=== PATIENT | male | born 1930 | race African-American/Black ===

== ENCOUNTER 2017-12-16 04:49 | Inpatient (IN) | payer MEDICARE, BC ==
[~2017-12-16] VITALS: Ht 185.4 cm; Wt 89.8 kg
[~2017-12-16 04:49] MED LIST: AML5T PO; [UNRECOGNIZED DRUG - CODE] PO
[2017-12-16 08:08] LABS: Basophils # (auto) 0 uL; Basophils % (auto) 0.4 % (0.0-2.0); Eosinophils # (auto) 0 uL; Hematocrit 40.8 % (41.0-53.0); Hemoglobin 13.5 g/dL (13.5-17.5); Lymphocytes # (auto) 0.9 uL; Lymphocytes % (auto) 8.6 % (10.0-50.0); Mean Corpuscular Hemoglobin 30.3 pg (28.0-32.0); Mean Corpuscular Hgb Conc. 33.1 g/dL (32.0-36.0); Mean Corpuscular Volume 91.7 fL (80.0-100.0); Monocytes # (auto) 1.4 uL; Monocytes % (auto) 13.1 % (0.0-12.0); Neutrophils # (auto) 8.1 uL; Neutrophils % (auto) 77.9 % (37.0-80.0); Platelet Count (auto) 218 10^3/uL (140-450); Red Blood Cells 4.45 10^6/uL (4.5-5.90); Red Cell Distribution Width 13.2 % (11.8-14.3); White Blood Cell 10.4 10^3/uL (4.4-10.8)
[2017-12-16 08:19] LABS: INR 1.01 (0.9-1.15); Partial Thromboplastin Time 23.1 sec (22.64-33.71)
[2017-12-16 08:36] LABS: Alanine Aminotransferase 29 U/L (16-61); Albumin 3.4 g/dL (3.4-5.0); Alkaline Phosphatase 77 U/L (45-117); Anion Gap 9 (5-15); Aspartate Aminotransferase 22 U/L (15-37); BUN/Creatinine Ratio 13.3; Blood Alcohol < 3.0 mg/dL (0-5); Blood Urea Nitrogen 16 mg/dL (7-18); Calcium 8.5 mg/dL (8.5-10.1); Carbon Dioxide 25 mmol/L (21-32); Chloride 105 mmol/L (98-107); GFR African American 73 mL/min; GFR Non-African American 61 mL/min; Glucose 141 mg/dL (74-106); Potassium 3.5 mmol/L (3.5-5.1); Sodium 139 mmol/L (136-145); Total Protein 7.2 g/dL (6.4-8.2)
[2017-12-16 09:19] LABS: Urine Bacteria NONE SEEN /hpf (None Seen); Urine Blood Negative /uL (Negative); Urine Mucus FEW (None Seen); Urine Specific Gravity 1.022 (1.001-1.035); Urine WBC <1 /hpf (0 - 3)
[2017-12-16] MEDS ORDERED: ACETAMINOPHEN 500 MG TAB PO PRN (11:45)
[2017-12-16] MEDS ORDERED: traMADol HCL 50 MG TAB PO PRN (11:45)
[2017-12-16] MEDS ORDERED: amLODIPine BESYLATE 5 MG TAB PO ONE (11:45)
[2017-12-16] MEDS ORDERED: ONDANSETRON HCL 4 MG/2 ML VIAL IV PRN (11:45)
[2017-12-16] MEDS ORDERED: LEVOFLOXACIN 500 MG TAB PO ONE (11:45)
[2017-12-16] MEDS ORDERED: MORPHINE SULFATE 4 MG/ML SYR/VIAL IV PRN (11:45)
[2017-12-16] MEDS ORDERED: SODIUM CHLORIDE 0.9% 1,000 ML IV SCH (11:45)
[2017-12-16 12:26] LABS: Cholesterol 152 mg/dL (< 200); HDL Cholesterol 72 mg/dL (40-59); LDL Cholesterol 87 mg/dL (< 100); Triglycerides 70 mg/dL (< 150)
[2017-12-16] MEDS ORDERED: cefTRIAXone 1GM/10ml IVPUSH 10 ML IV ONE (14:00)
[2017-12-16] MEDS ORDERED: AZITHROMYCIN 500MG/ 250ML 250 ML IV ONE (14:00)
[2017-12-16] MEDS: SODIUM CHLORIDE 0.9% 1,000 ML IV SCH (14:17)
[2017-12-16 18:21] VITALS: BP 151/67
[2017-12-16 20:00] VITALS: BP 145/75
[2017-12-16] MEDS: MEMANTINE HCL 5 MG TAB PO SCH (21:45)
[2017-12-16] MEDS: DOCUSATE SOD 100 MG CAP PO SCH (21:45)
[2017-12-16 22:00] VITALS: BP 145/75
[2017-12-16] MEDS ORDERED: HALOPERIDOL LACTATE 5 MG/ML INJ VIAL IM PRN (23:15)
[2017-12-17] MEDS: SODIUM CHLORIDE 0.9% 1,000 ML IV SCH ×3 (03:20→20:05)
[2017-12-17 04:34] VITALS: BP 118/80
[2017-12-17 06:37] LABS: BUN/Creatinine Ratio 12.2; Calcium 8.1 mg/dL (8.5-10.1); Potassium 3.7 mmol/L (3.5-5.1)
[2017-12-17 08:27] LABS: Basophils # (auto) 0 uL; Basophils % (auto) 0.3 % (0.0-2.0); Eosinophils # (auto) 0 uL; Eosinophils % (auto) 0.6 % (0.0-7.0); Hematocrit 37.7 % (41.0-53.0); Hemoglobin 12.7 g/dL (13.5-17.5); Lymphocytes % (auto) 13.8 % (10.0-50.0); Mean Corpuscular Hemoglobin 30.9 pg (28.0-32.0); Mean Corpuscular Hgb Conc. 33.7 g/dL (32.0-36.0); Mean Corpuscular Volume 91.8 fL (80.0-100.0); Monocytes # (auto) 1.3 uL; Monocytes % (auto) 17.3 % (0.0-12.0); Platelet Count (auto) 214 10^3/uL (140-450); Red Blood Cells 4.11 10^6/uL (4.5-5.90); Red Cell Distribution Width 13.3 % (11.8-14.3); White Blood Cell 7.3 10^3/uL (4.4-10.8)
[2017-12-17] MEDS: cefTRIAXone 1GM/10ml IVPUSH 10 ML IV SCH (09:16)
[2017-12-17 10:00] VITALS: BP 140/63
[2017-12-17] MEDS ORDERED: LEVOFLOXACIN 500 MG TAB PO SCH (10:00)
[2017-12-17] MEDS: AZITHROMYCIN 500MG/ 250ML 250 ML IV SCH (10:23)
[2017-12-17] MEDS: DOCUSATE SOD 100 MG CAP PO SCH ×2 (10:23→21:52)
[2017-12-17] MEDS: MEMANTINE HCL 5 MG TAB PO SCH ×2 (10:23→21:52)
[2017-12-17] MEDS: amLODIPine BESYLATE 5 MG TAB PO SCH (10:25)
[2017-12-17 22:00] VITALS: BP 140/74
[2017-12-18] MEDS: SODIUM CHLORIDE 0.9% 1,000 ML IV SCH ×4 (02:50→23:16)
[2017-12-18 05:22] VITALS: BP 145/77
[2017-12-18 07:38] VITALS: BP 144/79
[2017-12-18 08:00] VITALS: BP 129/71
[2017-12-18] MEDS: DOCUSATE SOD 100 MG CAP PO SCH ×2 (10:00→22:00)
[2017-12-18] MEDS: AZITHROMYCIN 500MG/ 250ML 250 ML IV SCH (11:12)
[2017-12-18] MEDS: cefTRIAXone 1GM/10ml IVPUSH 10 ML IV SCH (11:12)
[2017-12-18] MEDS: PANTOPRAZOLE 40 MG/10 ML VIAL IV SCH (11:13)
[2017-12-18] MEDS: MEMANTINE HCL 5 MG TAB PO SCH ×2 (11:14→23:16)
[2017-12-18] MEDS: amLODIPine BESYLATE 5 MG TAB PO SCH (11:14)
[2017-12-18 12:52] VITALS: BP 129/71
[2017-12-18] MEDS: ALPRAZolam 0.5 MG TAB PO PRN ×2 (15:04→23:17)
[2017-12-18] MEDS ORDERED: guaiFENesin-DM 100/10mg/5ml SYR PO PRN (15:15)
[2017-12-18 16:40] VITALS: BP 134/70
[2017-12-18 22:44] VITALS: BP 145/68
[2017-12-19] MEDS: SODIUM CHLORIDE 0.9% 1,000 ML IV SCH ×2 (05:28→12:10)
[2017-12-19 07:20] LABS: Hematocrit 35.2 % (41.0-53.0); Hemoglobin 12.1 g/dL (13.5-17.5); Mean Corpuscular Hemoglobin 31.2 pg (28.0-32.0); Mean Corpuscular Hgb Conc. 34.4 g/dL (32.0-36.0); Mean Corpuscular Volume 90.8 fL (80.0-100.0); Platelet Count (auto) 227 10^3/uL (140-450); Red Blood Cells 3.87 10^6/uL (4.5-5.90); Red Cell Distribution Width 13.1 % (11.8-14.3); White Blood Cell 5.5 10^3/uL (4.4-10.8)
[2017-12-19 07:34] LABS: Band Neutrophils % (manual) 0; Basophils % (manual) 0 (0.0-2.0); Blast Cells 0; Metamyelocytes % 0; Myelocytes % 0; Promyelocytes % 0; Reactive Lymphocytes 0
[2017-12-19 07:44] LABS: Albumin 2.6 g/dL (3.4-5.0); BUN/Creatinine Ratio 12.5; Bilirubin, Total 0.8 mg/dL (0.2-1.0); Calcium 8.1 mg/dL (8.5-10.1); Potassium 3.4 mmol/L (3.5-5.1); Total Protein 6.2 g/dL (6.4-8.2)
[2017-12-19 08:00] VITALS: BP 146/70
[2017-12-19 08:20] LABS: Eosinophils % (manual) 3 (0-7); Lymphocytes % (manual) 38 (10.0-50.0); Monocytes % (manual) 5 (0-12)
[2017-12-19 09:00] VITALS: BP 146/70
[2017-12-19] MEDS: cefTRIAXone 1GM/10ml IVPUSH 10 ML IV SCH (10:20)
[2017-12-19] MEDS: PANTOPRAZOLE 40 MG/10 ML VIAL IV SCH (10:20)
[2017-12-19] MEDS: MEMANTINE HCL 5 MG TAB PO SCH (10:21)
[2017-12-19] MEDS: AZITHROMYCIN 500MG/ 250ML 250 ML IV SCH (10:21)
[2017-12-19] MEDS: amLODIPine BESYLATE 5 MG TAB PO SCH (10:21)
[2017-12-19] MEDS: ALPRAZolam 0.5 MG TAB PO PRN (10:22)
[2017-12-19] MEDS: DOCUSATE SOD 100 MG CAP PO SCH (10:22)
[2017-12-19 11:26] VITALS: BP 146/70
[2017-12-19] MEDS ORDERED: AZITHROMYCIN 250 MG TAB PO ONE (12:00)
[2017-12-19 13:00] VITALS: BP 142/68
== END 2017-12-19 16:50 | DRG 871 ==
LOC: EDBD 04:49 → EDUNIT# 04:49 → ER 04:58 → OVERFLOW 04:59 → EAST 16:37 → WEST WING 12-17 17:23
PROVIDERS: ADMIT Internal Medicine; ATTEND Family Medicine
DX: A41.9 Sepsis, unspecified organism (principal); J15.212 Pneumonia due to Methicillin resistant Staphylococcus aureus; G93.41 Metabolic encephalopathy; G30.9 Alzheimer's disease, unspecified; E86.0 Dehydration; I11.9 Hypertensive heart disease without heart failure; F02.80 Dementia in other diseases classified elsewhere, unspecified severity, without behavioral disturbance, psychotic disturbance, mood disturbance, and anxiety; J98.11 Atelectasis; F17.200 Nicotine dependence, unspecified, uncomplicated; I70.0 Atherosclerosis of aorta; M19.90 Unspecified osteoarthritis, unspecified site; M81.0 Age-related osteoporosis without current pathological fracture; Y95 Nosocomial condition; Z79.899 Other long term (current) drug therapy
CPT/HCPCS: 36415; 70450; 71045; 80048; 80053; 80061; 80320; 81001; 83036; 83605; 84443; 84484; 85007; 85025; 85027; 85610; 85730; 87040; 87081; 87804; 93005; 96361; 96365; 96375; C9113